=== PATIENT | female | born 1990 | race African-American/Black ===

== ENCOUNTER 2016-11-02 20:01 | Emergency (ER) | payer MEDICAID ==
[~2016-11-02] VITALS: Ht 162.6 cm; Wt 78.5 kg
[2016-11-02 20:15] VITALS: BP 137/74
[2016-11-02 21:06] LABS: OBC FLU VALID
[2016-11-02] MEDS ORDERED: ACETAMINOPHEN 500 MG TABLET PO ONE (22:00)
[2016-11-02] MEDS ORDERED: IBUP-1007 PO (22:10)
[2016-11-02] MEDS ORDERED: ACET325T9 PO (22:10)
--- NOTE | 2016-11-02 22:11 | PHYS DOC ---
Past Medical History Past Medical History: No Pertinent History Past Surgical History: Alcohol Use: None Drug Use: None Adult General Chief Complaint Chief Complaint: COUGH HPI HPI Patient is a 26 year old female who presents with a productive cough, nasal congestion, body aches and fevers for 3 days. Patient is in the ED with 3 children with some complaints. Denies any chance she is . Review of Systems Review of Systems Constitutional: Fever and body aches Eyes: Denies change in visual acuity, redness, or eye pain [] HENT: nasal congestion Respiratory: cough Cardiovascular: No additional information not addressed in HPI [] GI: Denies abdominal pain, nausea, vomiting, bloody stools or diarrhea [] : Denies dysuria or hematuria [] Musculoskeletal: Denies back pain or joint pain [] Integument: Denies rash or skin lesions [] Neurologic: Denies headache, focal weakness or sensory changes [] Endocrine: Denies polyuria or polydipsia [] Current Medications Current Medications Current Medications Medications (Trade) Dose Ordered Sig/Era Start Time Stop Time Status Last Admin Dose Admin Acetaminophen (Tylenol) 1,000 mg 1X ONCE 11/02/16 22:00 11/02/16 22:01 DC 11/02/16 21:51 1,000 MG Allergies Allergies Allergies Coded Allergies Type Severity Reaction Last Updated Verified pollen extracts Allergy Intermediate 11/02/16 Yes Physical Exam Physical Exam Constitutional: Well developed, well nourished, no acute distress, non-toxic appearance. [] HENT: Normocephalic, atraumatic, bilateral external ears normal, oropharynx moist, no oral exudates, nose normal. [] Eyes: PERRLA, EOMI, conjunctiva normal, no discharge. [] Neck: Normal range of motion, no tenderness, supple, no stridor. [] Cardiovascular:Heart rate regular rhythm, no murmur [] Lungs & Thorax: Bilateral breath sounds clear to auscultation [] Abdomen: Bowel sounds normal, soft, no tenderness, no masses, no pulsatile masses. [] Skin: Warm, dry, no erythema, no rash. [] Back: No tenderness, no CVA tenderness. [] Extremities: No tenderness, no cyanosis, no clubbing, ROM intact, no edema. [] Neurologic: Alert and oriented X 3, normal motor function, normal sensory function, no focal deficits noted. [] Psychologic: Affect normal, judgement normal, mood normal. [] Current Patient Data Vital Signs Vital Signs Date Time Temp Pulse Resp B/P Pulse Ox O2 Delivery O2 Flow Rate FiO2 11/02/16 20:15 99.0 113 20 95 Room Air 99.0 Lab Values Laboratory Tests Test 11/02/16 20:27 Influenza Type A Antigen Negative (NEGATIVE) Influenza Type B Antigen Positive (NEGATIVE) EKG EKG [] Radiology/Procedures Radiology/Procedures [] Course & Med Decision Making Course & Med Decision Making Pertinent Labs and Imaging studies reviewed. (See chart for details) Patient is in the ED with complaints of fever cough and body aches and nasal congestion. Positive for Influenza B, negative influenza A. Patient has been sick for 3 days. D/c with Rx for Tylenol and Motrin. Instructed to push fluids. Discharged with Tessalon Perles for cough. Provided return precautions and discharged in stable condition. Dragon Disclaimer Dragon Disclaimer This electronic medical record was generated, in whole or in part, using a voice recognition dictation system. Departure Departure Impression: Primary Impression: Cough Additional Impressions: Influenza B Fever Upper respiratory infection Disposition: HOME, SELF-CARE Condition: STABLE Referrals: NO PCP (PCP) Follow-up with your own doctor in one week Patient Instructions: Fever, Adult, Upper Respiratory Infection, Adult Additional Instructions: You tested positive for influenza B.You also have a fever and a cough. Your symptoms are consistent with a viral illness. Take Tylenol every 4 hours and Motrin every 6 hours, take the prescribed cough medicine as needed. Follow-up with your own doctor in one week. Push fluids maintain good hand hygiene. Scripts Acetaminophen (Tylenol)325 Mg Tablet1-2 Tab PO QID #60 TAB Ref 2 Prov:[email or web address] Rider [employer] 11/02/16 Ibuprofen 600 Mg [id number] Mg PO PRN Q6HRS PRN INFLAMMATION #30 TAB Prov:MARTA AUSTIN [employer] 11/02/16 Problem Qualifiers Additional Impressions: Fever Fever type: unspecified Qualified Code: R50.9 - Fever, unspecified Upper respiratory infection URI type: unspecified URI Qualified Code: J06.9 - Acute upper respiratory infection, unspecified MARTA AUSTIN APRN Nov 02, 2016 22:11
[2016-11-02] MEDS ORDERED: BENZ100C PO (22:12)
== END 2016-11-02 21:15 | disposition home or self-care (01) ==
LOC: ER 20:01
DX: J10.1 Influenza due to other identified influenza virus with other respiratory manifestations (principal); J06.9 Acute upper respiratory infection, unspecified; Z91.09 Other allergy status, other than to drugs and biological substances
CPT/HCPCS: 87804; 99284